=== PATIENT | male | born 1935 | race Caucasian/White ===

== ENCOUNTER 2016-08-30 06:48 | Day surgery (SDC) | payer BC ==
[~2016-08-30 06:48] MED LIST: ARIXTRA2.5 SC; ASAB PO; COMBIGAN0.2 MG/0.5 OP; COUMADIN6 MG PO; COUMADIN7.5 MG PO; LEVAQUIN750 MG PO; LORTAB 5 PO; LORTAB PO; LOVENOX; LOVENOX80 SC; MEG40 PO; METHOC500B PO; MIRALAXPKT PO; MUCINEX600 MG PO; PYR200 PO; TESS PO; Z300 PO
== END 2016-08-30 23:59 | disposition home health service (06) ==
LOC: SDC 06:48
PROVIDERS: Ophthalmology
PROC: 085K3ZZ Destruction of Left Lens, Percutaneous Approach (ICD-10-PCS; principal; 2016-08-30 08:30)
DX: H26.492 Other secondary cataract, left eye (principal); M19.90 Unspecified osteoarthritis, unspecified site; Z79.82 Long term (current) use of aspirin; Z87.891 Personal history of nicotine dependence; Z98.41 Cataract extraction status, right eye; Z98.42 Cataract extraction status, left eye; Z96.1 Presence of intraocular lens; Z86.010 Personal history of colon polyps; Z98.890 Other specified postprocedural states